=== PATIENT | female | born 1965 | race African-American/Black ===

== ENCOUNTER 2018-02-21 18:47 | Emergency (ER) | payer BC ==
[2018-02-21] MEDS ORDERED: Fluorescein Opthalmic Strip ONE (19:39)
[2018-02-21] MEDS ORDERED: Proparacaine 0.5% Opth 15 ML BOT ONE (19:39)
== END 2018-02-21 20:09 | disposition home or self-care (01) ==
LOC: SCSER 18:47
DX: S05.8X1A Other injuries of right eye and orbit, initial encounter (principal); E11.9 Type 2 diabetes mellitus without complications; I10 Essential (primary) hypertension; J45.909 Unspecified asthma, uncomplicated; Z79.4 Long term (current) use of insulin; Z79.84 Long term (current) use of oral hypoglycemic drugs; Z79.899 Other long term (current) drug therapy; W51.XXXA Accidental striking against or bumped into by another person, initial encounter
CPT/HCPCS: 99283